=== PATIENT | male | born 1955 | race Caucasian/White ===

== ENCOUNTER 2016-12-21 01:49 | Emergency (ER) | payer MEDICAID ==
[2016-12-21 01:52] VITALS: BP 141/65; PULSE 70; RESP 16; TEMP 98.6; O2SAT 97
[2016-12-21] MEDS ORDERED: RESP: ALBUTEROL 2.5 MG/IPRATROPIUM 0.5 MG NEB (SCH) INH ONE (02:15)
[2016-12-21] MEDS ORDERED: predniSONE 20 MG TAB PO ONE (02:15)
--- NOTE | 2016-12-21 02:21 | PD ---
HPI Chief Complaint: Respiratory Symptoms Time Seen by Provider: 02:16 Travel History International Travel<30 days: No Contact w/Intl Traveler<30days: No Traveled to known affect area: No History of Present Illness HPI 61-year-old white male presents to emergency Department with complaints of cough and congestion for the past 4 days. He states that he has had a dental infection which she just saw the dentist this past week and is been started on penicillin. He plans on having his tooth extracted on Saturday. He denies any fever chills, earache, runny nose, sore throat, nausea, vomiting or diarrhea. Positive cough, congestion, shortness of breath and questionable wheezing. The patient states that he quit smoking 4 years ago. He's had a history of coronary artery disease with stent and hypertension. [facility] Past Medical History Narrative Medical Coronary artery disease, stent, Cardiac Catheterization: Yes Coronary Artery Disease: Yes Diminished Hearing: No Hypertension: Yes Myocardial Infarction: Yes Tetanus Vaccination: Unknown Past Surgical History Abdominal Surgery: Yes (unsure on sx's) Coronary Stent: Yes Social History Alcohol Use: No Tobacco Use: No Substance Use: No Allergies-Medications (Allergen,Severity, Reaction): Coded Allergies: Motrin (Verified Allergy, Unknown, 12/21/16) Reported Meds & Prescriptions Reported Meds & Active Scripts Active Deltasone (Prednisone) 20 Mg Tab 20 Mg PO BID Proventil Hfa 6.7 GM Inh (Albuterol Sulfate) 90 Mcg/Act Aer 2 Puff INH Q6H PRN Review of Systems Except as stated in HPI: all other systems reviewed are Neg Physical Exam Narrative GENERAL: Well-developed, well-nourished in no acute distress. Nontoxic appearing. HEAD: Normocephalic, atraumatic. EYES: Pupils equal round and reactive. Extraocular motions intact. No scleral icterus. No injection or drainage. ENT: TMs clear without erythema. The external auditory canals clear. Nose: clear . Posterior pharynx is pink and moist. No tonsillar edema or exudate. Uvula midline. Airway patent. NECK: Trachea midline.Supple, nontender, moves head freely. No central bony tenderness or spasm. CARDIOVASCULAR: Regular rate and rhythm without murmurs, gallops, or rubs. RESPIRATORY: Few x-ray wheezes. No Rales or rhonchi. GASTROINTESTINAL: Abdomen soft, non-tender, nondistended. No hepato-splenomegaly , or palpable masses. No guarding. EXTREMITIES: No clubbing, cyanosis, or edema. No joint tenderness, effusion, or edema noted. BACK: Nontender without deformity or crepitance. No flank tenderness. Data Data Last Documented VS Vital Signs Date Time Temp Pulse Resp B/P Pulse Ox O2 Delivery O2 Flow Rate FiO2 12/21/16 02:06 Room Air 12/21/16 01:52 98.6 70 16 141/65 97 Orders Prednisone (Deltasone) (12/21/16 02:15) Albuterol-Ipratropium Neb (Duoneb Neb) (12/21/16 02:15) MDM Medical Decision Making Medical Screen Exam Complete: Yes Emergency Medical Condition: Yes Medical Record Reviewed: Yes Differential Diagnosis MDM: High Differential diagnoses: Pneumonia, bronchitis, URI, asthma, RAD, legionnaire's disease, SARS, ARDS, influenza, bronchiolitis, RSV,PE,CHF Narrative Course Patient's given 80mg of prednisone and 1 DuoNeb. The patient is feeling improved. The patient medically stable for discharge. This is cough, reactive airway disease Diagnosis Primary Impression: Cough Additional Impression: Reactive airway disease Qualified Code: J45.20 - Mild intermittent reactive airway disease without complication Patient Instructions: General Instructions Additional Instructions: Rest. Increase fluids. Tylenol and Advil. prednisone, and albuterol. Followup with your Dr. in one week. Return to the ER for any problems. Med/Other Pt SpecificInfo: Prescription(s) given Scripts Prednisone (Deltasone)20 Mg Tab20 Mg PO BID #10 TAB Prov:Pablo Lainez MD 12/21/16 Albuterol 6.7 GM Inh (Proventil Hfa 6.7 GM Inh)90 Mcg/Act Aer2 Puff INH Q6H PRN (SHORTNESS OF BREATH) #1 INHALER Prov:Pablo Lainez MD 12/21/16 Disposition: 01 DISCHARGE HOME Condition: Stable Huber Browning Dec 21, 2016 02:21
[2016-12-21] MEDS ORDERED: ALBU6.7H INH (03:07)
[2016-12-21] MEDS ORDERED: PRED-503 PO (03:07)
== END 2016-12-21 03:19 | disposition home or self-care (01) ==
LOC: NEPD 01:49
DX: R05 Cough (principal); J45.909 Unspecified asthma, uncomplicated; I25.10 Atherosclerotic heart disease of native coronary artery without angina pectoris; I10 Essential (primary) hypertension; I25.2 Old myocardial infarction; Z88.6 Allergy status to analgesic agent
CPT/HCPCS: 94664; 99284; J7512

== ENCOUNTER 2017-02-23 08:48 | Emergency (ER) | payer MEDICAID ==
[~2017-02-23] VITALS: Ht 167.6 cm; Wt 72.0 kg
[~2017-02-23 08:48] MED LIST: ALBU6.7H INH; PRED-503 PO
[2017-02-23 08:53] VITALS: BP 155/73; PULSE 58; RESP 20; TEMP 98.3; O2SAT 97
--- NOTE | 2017-02-23 09:16 | PD ---
HPI Chief Complaint: Chest Pain Time Seen by Provider: 09:00 Travel History International Travel<30 days: No Contact w/Intl Traveler<30days: No Traveled to known affect area: No History of Present Illness HPI This is a 61-year-old male with a history of coronary artery disease, previous blood clots in his lower extremity, who presents today with complaints of cramps in his lower extremities bilaterally. Patient also reports right shoulder strain. Patient states that he has frequent cramps in his lower extremities. He states is normally there all the time however the intensity is a little worse today. He was concerning may have recurrent blood clots in his lower extremity. He supposedly takes blood thinners however he is unaware of which one he takes. Patient also states he was doing heavy lifting yesterday and feels as though he may have pulled a muscle in his right shoulder. There is no chest pain. There is no chest pressure. There is no left sided arm or shoulder discomfort. There is no reported shortness of breath. PFSH Past Medical History Cardiac Catheterization: Yes Coronary Artery Disease: Yes Diminished Hearing: No Hypertension: Yes Myocardial Infarction: Yes Past Surgical History Abdominal Surgery: Yes (unsure on sx's) Coronary Stent: Yes Social History Alcohol Use: No Tobacco Use: No Substance Use: No Allergies-Medications (Allergen,Severity, Reaction): Coded Allergies: ibuprofen (Unverified Allergy, Unknown, 02/23/17) Reported Meds & Prescriptions Reported Meds & Active Scripts Active Reported Quetiapine (Quetiapine Fumarate) 25 Mg Tab 25 Mg PO DAILY Brilinta (Ticagrelor) 90 Mg Tab 90 Mg PO BID Carvedilol 3.125 Mg Tab 3.125 Mg PO BID Pantoprazole (Pantoprazole Sodium) 40 Mg Tab 40 Mg PO DAILY Tamsulosin (Tamsulosin HCl) 0.4 Mg Cap 0.4 Mg PO HS Aspirin 81 Mg Chew 81 Mg CHEW DAILY Lisinopril 5 Mg Tab 5 Mg PO DAILY Atorvastatin (Atorvastatin Calcium) 20 Mg Tab 20 Mg PO HS Review of Systems Except as stated in HPI: all other systems reviewed are Neg General / Constitutional: No: Fever, Chills HENT: No: Headaches, Vertigo, Lightheadedness Cardiovascular: No: Chest Pain or Discomfort, Palpitations Respiratory: No: Cough, Shortness of Breath Gastrointestinal: Positive: Nausea, No: Vomiting, Abdominal Pain, Indigestion Genitourinary: No: Frequency, Dysuria Musculoskeletal: Positive: Cramping (cramping of bilateral thighs. No calf tenderness.), Pain (right shoulder pain. Patient states feels like "pulled muscle".), Other Skin: No Rash, No Lesions Neurologic: No: Weakness, Dizziness Endocrine: No: Polyuria, Polydipsia Physical Exam Narrative GENERAL: Well-developed well-nourished male in no acute respiratory distress. SKIN: Focused skin assessment warm/dry. HEAD: Atraumatic. Normocephalic. EYES: No scleral icterus. No injection or drainage. ENT: No nasal bleeding or discharge. Mucous membranes pink and moist. NECK: Trachea midline. No JVD. Supple. CARDIOVASCULAR: Regular rate and rhythm. No murmur appreciated. RESPIRATORY: No accessory muscle use. Clear to auscultation. Breath sounds equal bilaterally. GASTROINTESTINAL: Abdomen soft, non-tender, nondistended. Hepatic and splenic margins not palpable. MUSCULOSKELETAL: No obvious deformities. No clubbing. No cyanosis. No edema. No calf tenderness. No Homans sign. NEUROLOGICAL: Awake and alert. No obvious cranial nerve deficits. Motor grossly within normal limits. Normal speech. PSYCHIATRIC: Appropriate mood and affect; insight and judgment normal. Data Data Last Documented VS Vital Signs Date Time Temp Pulse Resp B/P (MAP) Pulse Ox O2 Delivery O2 Flow Rate FiO2 02/23/17 12:30 64 20 156/74 (101) 96 Room Air 02/23/17 08:53 98.3 Orders Orders Complete Blood Count With Diff (02/23/17 09:00) Comprehensive Metabolic Panel (02/23/17 09:00) Ckmb (Isoenzyme) Profile (02/23/17 09:00) Troponin I (02/23/17:00) Prothrombin Time / Inr (Pt) (02/23/17:) Act Partial Throm Time (Ptt) (02/23/17 09:00) Chest, Single Ap (02/23/17 09:00) Iv Access Insert/Monitor (02/23/17 09:00) Ecg Monitoring (02/23/17 09:00) Oximetry (02/23/17 09:00) Sodium Chlor 0.9% 1000 Ml Inj (Ns 1000 M (02/23/17 09:00) CKMB (02/23/17 09:15) CKMB% (02/23/17 09:15) Us Leg Venous Doppler Bilat (02/23/17 11:33) Sodium Chlorid 0.9% 500 Ml Inj (Ns 500 M (02/23/17 11:45) Labs Laboratory Tests Test 02/23/17 09:15 White Blood Count 12.7 TH/MM3 Red Blood Count 4.11 MIL/MM3 Hemoglobin 11.8 GM/DL Hematocrit 35.4 % Mean Corpuscular Volume 86.2 FL Mean Corpuscular Hemoglobin 28.8 PG Mean Corpuscular Hemoglobin Concent 33.4 % Red Cell Distribution Width 14.8 % Platelet Count 313 TH/MM3 Mean Platelet Volume 8.4 FL Neutrophils (%) (Auto) 64.1 % Lymphocytes (%) (Auto) 20.6 % Monocytes (%) (Auto) 13.3 % Eosinophils (%) (Auto) 1.6 % Basophils (%) (Auto) 0.4 % Neutrophils # (Auto) 8.2 TH/MM3 Lymphocytes # (Auto) 2.6 TH/MM3 Monocytes # (Auto) 1.7 TH/MM3 Eosinophils # (Auto) 0.2 TH/MM3 Basophils # (Auto) 0.0 TH/MM3 CBC Comment DIFF FINAL Differential Comment Prothrombin Time 10.9 SEC Prothromb Time International Ratio 1.0 RATIO Activated Partial Thromboplast Time 30.8 SEC Blood Urea Nitrogen 19 MG/DL Creatinine 1.14 MG/DL Random Glucose 117 MG/DL Total Protein 7.6 GM/DL Albumin 3.4 GM/DL Calcium Level 9.0 MG/DL Alkaline Phosphatase 97 U/L Aspartate Amino Transf (AST/SGOT) 15 U/L Alanine Aminotransferase (ALT/SGPT) 26 U/L Total Bilirubin 0.4 MG/DL Sodium Level 137 MEQ/L Potassium Level 4.0 MEQ/L Chloride Level 103 MEQ/L Carbon Dioxide Level 24.5 MEQ/L Anion Gap 10 MEQ/L Estimat Glomerular Filtration Rate 65 ML/MIN Total Creatine Kinase 155 U/L Creatine Kinase MB 1.9 NG/ML Troponin I 0.03 NG/ML [facility] Medical Decision Making Medical Screen Exam Complete: Yes Emergency Medical Condition: Yes Differential Diagnosis Dehydration versus electrolyte imbalance versus DVTs. Narrative Course 61-year-old male with a history of previous DVTs of lower extremities, previous leg cramps, who presents today with complaints of bilateral lower extremity cramps and right shoulder strain. The patient was doing heavy lifting yesterday when he started experiencing shoulder strain. The patient was noted to be dehydrated. He was infused 1-1/2 L of fluid. He states he feels much improved. Since we're unsure of what blood thinner medication he was on, and ultrasound of the bilateral lower extremities were ordered. There is no evidence of DVT. Right shoulder has full range of motion and he is tender over his deltoid muscle. He'll be discharged and told to drink plenty of fluids. He is also instructed to follow up with his primary care physician. Diagnosis Primary Impression: Mild dehydration Additional Impressions: Bilateral leg cramps Right shoulder strain Additional Instructions: Drink plenty of fluid. Ice 2 days on your shoulder, advance to moist heat as needed. Follow up with her primary care doctor within one week. Disposition: 01 DISCHARGE HOME Condition: Stable Richard Mattson MD Feb 23, 2017 09:16
[2017-02-23] MEDS: SODIUM CHLOR 0.9% 1000 ML INJ 1,000 ML IV SCH ×2 (09:22→13:10)
[2017-02-23 09:30] LABS: AUTOMATED NEUTROPHIL # 8.2 TH/MM3 (1.8-7.7); BASOPHIL % 0.4 % (0.0-2.0); EOSINOPHIL # 0.2 TH/MM3 (0-0.4); EOSINOPHIL % 1.6 % (0.0-4.0); HEMATOCRIT 35.4 % (39.0-51.0); HEMO FLAGS DIFF FINAL; LYMPH % 20.6 % (9.0-44.0); LYMPHOCYTE # 2.6 TH/MM3 (1.0-4.8); MEAN CELL VOLUME 86.2 FL (80.0-100.0); MEAN CORPUSCULAR HEMOGLOBIN 28.8 PG (27.0-34.0); MEAN CORPUSCULAR HGB CONC 33.4 % (32.0-36.0); MONO % 13.3 % (0.0-8.0); NEUT % 64.1 % (16.0-70.0); PLATELET COUNT 313 TH/MM3 (150-450); RED BLOOD COUNT 4.11 MIL/MM3 (4.50-5.90); RED CELL DISTRIBUTION WIDTH 14.8 % (11.6-17.2); WHITE BLOOD COUNT 12.7 TH/MM3 (4.0-11.0)
[2017-02-23 09:40] LABS: APTT (PATIENT) 30.8 SEC (24.3-30.1); PROTHROMBIN TIME - PATIENT 10.9 SEC (9.8-11.6)
[2017-02-23 09:47] LABS: ANION GAP 10 MEQ/L (5-15); AST (GOT) 15 U/L (15-37); BICARBONATE 24.5 MEQ/L (21.0-32.0); BLOOD UREA NITROGEN 19 MG/DL (7-18); CHLORIDE 103 MEQ/L (98-107); GLOMERULAR FILTRATION RATE 65 ML/MIN (>89); SODIUM (NA) 137 MEQ/L (136-145)
[2017-02-23 09:48] LABS: ALT (GPT) 26 U/L (12-78)
[2017-02-23 09:52] LABS: ALKALINE PHOSPHATASE 97 U/L (45-117); CREATINE KINASE 155 U/L (39-308); TOTAL BILIRUBIN ADULT 0.4 MG/DL (0.2-1.0)
--- NOTE | 2017-02-23 10:03 | RADRPT ---
EXAM DATE/TIME: 02/23/2017 09:56 [facility] COMPARISON: No previous studies available for comparison. INDICATIONS : Right sided chest pain that radiates into right shoulder. MEDICAL HISTORY : None. SURGICAL HISTORY : 2 cardiac stents. ENCOUNTER: Initial ACUITY: 2 days PAIN SCORE: 6/10 LOCATION: chest FINDINGS: A single view of the chest demonstrates the lungs to be symmetrically aerated without evidence of mas s, infiltrate or effusion. There is bilateral mild pulmonary venous congestion. The cardiomediastina l contours are unremarkable. Osseous structures are intact. CONCLUSION: Mild pulmonary venous congestion. No acute pulmonary infiltrates. Shaun Wallace MD on February 23, 2017 at 10:01 Board Certified Radiologist. This report was verified electronically.
[2017-02-23 10:04] LABS: CKMB 1.9 NG/ML (0.5-3.6)
[2017-02-23] MEDS ORDERED: SODIUM CHLORID 0.9% 500 ML INJ 500 ML IV ONE (11:45)
[2017-02-23 12:30] VITALS: BP 156/74; PULSE 64; RESP 20; O2SAT 96
[2017-02-23] MEDS ORDERED: TAMS0.4C4 PO (12:33)
[2017-02-23] MEDS ORDERED: QUET1TAB7 PO (12:33)
[2017-02-23] MEDS ORDERED: PANT40TA3 PO (12:33)
[2017-02-23] MEDS ORDERED: CARV3.12 PO (12:33)
[2017-02-23] MEDS ORDERED: ATOR20TA15 PO (12:33)
[2017-02-23] MEDS ORDERED: ASPI81CH CHEW (12:33)
[2017-02-23] MEDS ORDERED: BRIL90TA PO (12:33)
[2017-02-23] MEDS ORDERED: LISI-519 PO (12:33)
--- NOTE | 2017-02-23 14:03 | RADRPT ---
EXAM DATE/TIME: 02/23/2017 13:07 [facility] COMPARISON: No previous studies available for comparison. INDICATIONS : Bilateral leg pain. MEDICAL HISTORY : Myocardial infarction. Hypertension. Coronary artery disease. SURGICAL HISTORY : Coronary artery stent. Cardiac catheterization. Left hand surgery. ENCOUNTER: Initial ACUITY: 2 day PAIN SCORE: 3/10 LOCATION: Bilateral legs. TECHNIQUE: Venous ultrasound of the left and right leg was performed from the inguinal ligament to the proximal calf. Real-time, color Doppler and spectral tracing, compression and augmentation techniques were us ed. FINDINGS: RIGHT LEG: There is normal compressibility of the deep venous system from the inguinal region to the proximal ca lf. No echogenic clot is seen in the lumen of the common femoral, femoral, popliteal, and posterior tibial veins. There is a normal response of the venous system to proximal and distal augmentation an d respiration. LEFT LEG: There is normal compressibility of the deep venous system from the inguinal region to the proximal ca lf. No echogenic clot is seen in the lumen of the common femoral, femoral, popliteal, and posterior tibial veins. There is a normal response of the venous system to proximal and distal augmentation an d respiration. CONCLUSION: 1. No evidence of deep venous thrombosis.8 Cj Martinez MD on February 23, 2017 at 14:01 Board Certified Radiologist. This report was verified electronically.
[2017-02-23 14:46] VITALS: BP 142/72; PULSE 62; RESP 20; O2SAT 96
--- NOTE | 2017-02-23 16:24 | EKG ---
Date Performed: 02/23/2017 Time Performed: 08:58:04 PTAGE: 61 years EKG: SINUS BRADYCARDIA INDETERMINATE AXIS RIGHT BUNDLE BRANCH BLOCK ABNORMAL ECG NO PREVIOUS TRACING DOCTOR: Chang Nielsen Interpretating Date/Time 02/23/2017 16:24:10
== END 2017-02-23 15:19 | disposition home or self-care (01) ==
LOC: NEPC 08:48
DX: R25.2 Cramp and spasm (principal); S46.911A Strain of unspecified muscle, fascia and tendon at shoulder and upper arm level, right arm, initial encounter; I25.10 Atherosclerotic heart disease of native coronary artery without angina pectoris; I10 Essential (primary) hypertension; I25.2 Old myocardial infarction; Z79.82 Long term (current) use of aspirin; Z79.899 Other long term (current) drug therapy; E86.0 Dehydration; X58.XXXA Exposure to other specified factors, initial encounter; Z86.718 Personal history of other venous thrombosis and embolism
CPT/HCPCS: 71010; 80053; 82550; 82552; 84484; 85025; 85610; 85730; 93005; 93970; 96360; 96361; 99285; J7030; J7040

== ENCOUNTER 2017-05-24 10:25 | Emergency (ER) | payer MEDICAID ==
[~2017-05-24] VITALS: Ht 167.6 cm; Wt 85.0 kg
[~2017-05-24 10:25] MED LIST changes: -ALBU6.7H INH; +ASPI-516 CHEW; +ATOR20TA15 PO; +BRIL90TA PO; +CARV3.12 PO; +LISI-519 PO; +PANT40TA3 PO; -PRED-503 PO; +QUET1TAB7 PO; +TAMS0.4C4 PO
[2017-05-24 10:28] VITALS: BP 150/74; PULSE 77; RESP 16; TEMP 98.6; O2SAT 98
--- NOTE | 2017-05-24 12:58 | PD ---
HPI Chief Complaint: Cold / Flu Symptoms Time Seen by Provider: 12:49 Travel History International Travel<30 days: No Contact w/Intl Traveler<30days: No Traveled to known affect area: No History of Present Illness HPI This is a 61-year-old male who presents for evaluation. For 2 days he has had cough, congestion, sneezing. The cough is productive with green sputum. He has had some mild pressure in both ears, left greater than right. He denies fevers or chills. No sick contacts. Denies recent travel, rash, chest pain or shortness of breath, abdominal pain. He has not tried using any over-the- counter medications for symptom relief. He has no other complaints at this time. [facility] Past Medical History Cardiac Catheterization: Yes Coronary Artery Disease: Yes Diminished Hearing: No Hypertension: Yes Myocardial Infarction: Yes Past Surgical History Abdominal Surgery: Yes (unsure on sx's) Coronary Stent: Yes Social History Alcohol Use: No Tobacco Use: No Substance Use: No Allergies-Medications (Allergen,Severity, Reaction): Coded Allergies: ibuprofen (Unverified Allergy, Unknown, 05/24/17) Reported Meds & Prescriptions Reported Meds & Active Scripts Active Flonase Nasal [place] (Fluticasone Nasal [place]) 50 Mcg/Act [place] 100 Mcg EACH NARE BID 10 Days Tessalon Perles (Benzonatate) 100 Mg Cap 200 Mg PO TID PRN Reported Quetiapine (Quetiapine Fumarate) 25 Mg Tab 25 Mg PO DAILY Brilinta (Ticagrelor) 90 Mg Tab 90 Mg PO BID Carvedilol 3.125 Mg Tab 3.125 Mg PO BID Pantoprazole (Pantoprazole Sodium) 40 Mg Tab 40 Mg PO DAILY Tamsulosin (Tamsulosin HCl) 0.4 Mg Cap 0.4 Mg PO HS Aspirin 81 Mg Chew 81 Mg CHEW DAILY Lisinopril 5 Mg Tab 5 Mg PO DAILY Atorvastatin (Atorvastatin Calcium) 20 Mg Tab 20 Mg PO HS Review of Systems Except as stated in HPI: all other systems reviewed are Neg Physical Exam Narrative GENERAL: Well-developed well-nourished male in no acute distress SKIN: Warm and dry. HEAD: Atraumatic. Normocephalic. EYES: Pupils equal and round. No scleral icterus. No injection or drainage. ENT: No nasal bleeding or discharge. Mucous membranes pink and moist. Tympanic membranes appear normal bilaterally without erythema or fluid level. No oropharyngeal erythema accident. No tenderness to palpation over the maxillary or frontal sinuses. NECK: Trachea midline. No JVD. CARDIOVASCULAR: Regular rate and rhythm. No murmur appreciated. RESPIRATORY: No accessory muscle use. Clear to auscultation. Breath sounds equal bilaterally. GASTROINTESTINAL: Abdomen soft, non-tender, nondistended. Hepatic and splenic margins not palpable. MUSCULOSKELETAL: No obvious deformities. No clubbing. No cyanosis. No edema. NEUROLOGICAL: Awake and alert. No obvious cranial nerve deficits. Motor grossly within normal limits. Normal speech. PSYCHIATRIC: Appropriate mood and affect; insight and judgment normal. Data Data Last Documented VS Vital Signs Date Time Temp Pulse Resp B/P (MAP) Pulse Ox O2 Delivery O2 Flow Rate FiO2 05/24/17 10:28 98.6 77 16 150/74 (99) 98 Orders Orders Ed Discharge Order (05/24/17 13:04) [facility] Medical Decision Making Medical Screen Exam Complete: Yes Emergency Medical Condition: Yes Medical Record Reviewed: Yes Differential Diagnosis Bronchitis, rhinitis, influenza, pneumonia, sinusitis Narrative Course 61-year-old male with 2 days of cough, congestion, sneezing and bilateral ear pressure. Physical examination is reassuring. He is afebrile, not tachycardic , does not appear septic or dehydrated. His lungs are clear to auscultation. His ENT examination is unremarkable. I suspect he has a viral upper respiratory infection. The patient will be discharged with symptomatic treatment. Diagnosis Primary Impression: Upper respiratory infection Additional Instructions: Medication as prescribed. Stay well hydrated well-nourished. Return for any acutely or worsening symptoms. Med/Other Pt SpecificInfo: Prescription(s) given Scripts Fluticasone Nasal [place] (Flonase Nasal [place]) 50 Mcg/Act [place] 100 MCG EACH NARE BID for Allergies for 10 Days, #1 BOTTLE 0 Refills Prov: Gaurang Amaya MD 05/24/17 Benzonatate (Tessalon Perles) 100 Mg Cap 200 MG PO TID Y for COUGH, #30 CAP 0 Refills Prov: Gaurang Amaya MD 05/24/17 Disposition: 01 DISCHARGE HOME Condition: Stable Sander Valdez May 24, 2017 12:58
[2017-05-24] MEDS ORDERED: FLUT1SPR5 EACH NARE (13:03)
[2017-05-24] MEDS ORDERED: BENZ100 PO (13:03)
== END 2017-05-24 13:39 | disposition home or self-care (01) ==
LOC: NEPD 10:25
DX: J06.9 Acute upper respiratory infection, unspecified (principal); I10 Essential (primary) hypertension; I25.10 Atherosclerotic heart disease of native coronary artery without angina pectoris; I25.2 Old myocardial infarction; Z95.5 Presence of coronary angioplasty implant and graft
CPT/HCPCS: 99283

== ENCOUNTER 2017-05-25 00:14 | Observation (INO) | payer MEDICAID ==
[~2017-05-25 00:14] MED LIST changes: +BENZ100 PO; +FLUT1SPR5 EACH NARE
[2017-05-25 00:25] VITALS: BP 139/74; PULSE 71; RESP 16; TEMP 98.5; O2SAT 95
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
[2017-05-25] MEDS ORDERED: SODIUM CHLORIDE 0.9% FLUSH 10 ML FLUSH IVF PRN (01:30)
--- NOTE | 2017-05-25 01:53 | RADRPT ---
EXAM DATE/TIME: 05/25/2017 01:27 [facility] COMPARISON: CHEST SINGLE AP, February 23, 2017, 9:56. INDICATIONS : Chest pain and leg cramping. MEDICAL HISTORY : None. SURGICAL HISTORY : None. ENCOUNTER: Initial ACUITY: 1 day PAIN SCORE: 6/10 LOCATION: Bilateral chest FINDINGS: A single view of the chest demonstrates the lungs to be symmetrically aerated without evidence of mas s, infiltrate or effusion. The cardiomediastinal contours are unremarkable. Osseous structures are intact. CONCLUSION: No acute disease. No significant change has occurred. Shaun Wallace MD on May 25, 2017 at 1:50 Board Certified Radiologist. This report was verified electronically.
[2017-05-25 01:59] LABS: AUTOMATED NEUTROPHIL # 5.2 TH/MM3 (1.8-7.7); BASOPHIL % 0.5 % (0.0-2.0); EOSINOPHIL # 0.3 TH/MM3 (0-0.4); EOSINOPHIL % 3.1 % (0.0-4.0); HEMATOCRIT 36.6 % (39.0-51.0); LYMPH % 22.9 % (9.0-44.0); LYMPHOCYTE # 2.1 TH/MM3 (1.0-4.8); MEAN CELL VOLUME 86.4 FL (80.0-100.0); MEAN CORPUSCULAR HEMOGLOBIN 28.3 PG (27.0-34.0); MEAN CORPUSCULAR HGB CONC 32.8 % (32.0-36.0); MEAN PLATELET VOLUME 8.4 FL (7.0-11.0); MONO % 16.3 % (0.0-8.0); MONOCYTE # 1.5 TH/MM3 (0-0.9); NEUT % 57.2 % (16.0-70.0); PLATELET COUNT 326 TH/MM3 (150-450); RED BLOOD COUNT 4.24 MIL/MM3 (4.50-5.90); RED CELL DISTRIBUTION WIDTH 15.1 % (11.6-17.2); WHITE BLOOD COUNT 9.1 TH/MM3 (4.0-11.0)
[2017-05-25 02:12] LABS: PROTHROMBIN TIME - PATIENT 10.2 SEC (9.8-11.6)
[2017-05-25 02:36] LABS: BICARBONATE 25.2 MEQ/L (21.0-32.0); BLOOD UREA NITROGEN 14 MG/DL (7-18); CALCIUM 8.4 MG/DL (8.5-10.1); CHLORIDE 106 MEQ/L (98-107); CREATININE 1.35 MG/DL (0.60-1.30); GLOMERULAR FILTRATION RATE 53 ML/MIN (>89); GLUCOSE,RANDOM 109 MG/DL (74-106); SODIUM (NA) 139 MEQ/L (136-145)
[2017-05-25 02:39] LABS: TROPONIN I 0.04 NG/ML (0.02-0.05)
[2017-05-25] MEDS ORDERED: SODIUM CHLOR 0.9% 1000 ML INJ 1,000 ML IV ONE (03:00)
[2017-05-25] MEDS ORDERED: ONDANSETRON HCL 4 MG/2 ML VIAL IV PUSH PRN (03:15)
[2017-05-25] MEDS ORDERED: SODIUM CHLORIDE 0.9% FLUSH 10 ML FLUSH IV FLUSH PRN (03:15)
[2017-05-25] MEDS ORDERED: ACETAMINOPHEN 500 MG CPLT PO PRN (03:15)
[2017-05-25] MEDS ORDERED: NITROGLYCERIN 0.4 MG SL 25 TABS/BTL SL PRN (03:15)
[2017-05-25 03:47] VITALS: O2SAT 95
[2017-05-25 06:32] LABS: TROPONIN I 0.05 NG/ML (0.02-0.05)
[2017-05-25 07:48] VITALS: O2SAT 95
[2017-05-25] MEDS ORDERED: SODIUM CHLORIDE 0.9% FLUSH 10 ML FLUSH IV FLUSH SCH (09:00)
[2017-05-25 09:07] LABS: TROPONIN I 0.05 NG/ML (0.02-0.05)
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
[2017-05-25] MEDS ORDERED: REGADENOSON INJ 0.4 MG/5 ML SYR ONE (11:11)
--- NOTE | 2017-05-25 12:51 | RADRPT ---
EXAM DATE/TIME: 05/25/2017 11:00 [facility] COMPARISON: No previous studies available for comparison. INDICATIONS : Left sided chest pain. Angina. DOSE: 25.9 mCi Tc99m Myoview at stress. 8.1 mCi Tc99m Myoview at rest. 0.4 mg Lexiscan STRESS SYMPTOMS: Short of breath. EJECTION FRACTION: 42% MEDICAL HISTORY : Hypertension. Cardiovascular disease SURGICAL HISTORY : Coronary artery stent. ENCOUNTER: Initial ACUITY: 1 day PAIN SCALE: 3/10 LOCATION: Left chest TECHNIQUE: The patient underwent pharmacologic stress with infusion of prescribed dose. Continuous ECG tracing was monitored during stress. Gated SPECT imaging was performed after stress and conventional SPECT i maging was performed at rest. The examination was performed on a SPECT/CT scanner, both attenuation and non-corrected datasets were reviewed. FINDINGS: DISTRIBUTION: The maximum perfused segment at stress is in the anterior wall. PERFUSION STUDY: The pattern of perfusion at stress is within normal limits. GATED STUDY: There is intact wall motion and thickening without hypokinetic or dyskinetic segments. CONCLUSION: Ejection fraction 42%. No focal wall motion abnormality or focal reversible perfusion defect. RISK CATEGORY: 2- Intermediate Risk. Fred Casarez MD on May 25, 2017 at 12:46 Board Certified Radiologist. This report was verified electronically.
[2017-05-25] MEDS ORDERED: CARVEDILOL 3.125 MG TAB PO SCH (13:30)
--- NOTE | 2017-05-25 13:48 | HHI.DCPOC ---
Discharge Care Plan Diagnosis: (1) Atypical chest pain (2) Hx of coronary artery disease Goals to Promote Your Health * To prevent worsening of your condition and complications * To maintain your health at the optimal level Directions to Meet Your Goals Take your medications as prescribed Follow your dietary instruction Follow activity as directed Keep your appointments as scheduled Take your immunizations and boosters as scheduled If your symptoms worsen call your PCP, if no PCP go to Urgent Care Center or Emergency Room Smoking is Dangerous to Your Health. Avoid second hand smoke Call the 24-hour hour crisis hotline for domestic abuse at Sanjana Parmar May 25, 2017 13:48
[2017-05-25] MEDS ORDERED: TICAGRELOR 90 MG TAB PO SCH (14:00)
[2017-05-25] MEDS ORDERED: PANTOPRAZOLE SOD 40 MG DELAYED RELEASE TAB PO SCH (14:00)
[2017-05-25] MEDS ORDERED: QUEtiapine FUMARATE 25 MG TAB PO SCH (14:00)
[2017-05-25] MEDS ORDERED: LISINOPRIL 5 MG TAB PO SCH (14:00)
--- NOTE | 2017-05-25 14:04 | EKG ---
Date Performed: 05/25/2017 Time Performed: 05:58:11 PTAGE: 61 years EKG: SINUS BRADYCARDIA INDETERMINATE AXIS RIGHT BUNDLE BRANCH BLOCK ABNORMAL ECG NO SIG CHANGE PREVIOUS TRACING : 05/25/2017 01.26 DOCTOR: Blake Love Interpretating Date/Time 05/25/2017 14:03:53
--- NOTE | 2017-05-25 14:06 | EKG ---
Date Performed: 05/25/2017 Time Performed: 01:26:17 PTAGE: 61 years EKG: SINUS BRADYCARDIA RIGHT BUNDLE BRANCH BLOCK LEFT ANTERIOR FASCICULAR BLOCK ABNORMAL ECG NO SIG CHANGE PREVIOUS TRACING : 02/23/2017 08.58 DOCTOR: Blake Love Interpretating Date/Time 05/25/2017 14:05:50
--- NOTE | 2017-05-25 14:11 | TR ---
Date Performed: 05/25/2017 Time Performed: 11:30:15 DOCTOR: Blake Love DRUG LIST: CLINICAL HISTORY: REASON FOR TEST: REASON FOR ENDING: OBSERVATION: CONCLUSION: Lexiscan stress test was performed under standard four minute protocol. Radionuclide was injected one minute prior to ending the test. No electrocardiographic abormalities were present to suggest ischemia. Nuclear imaging and interpretation are pending. COMMENTS:
== END 2017-05-25 17:21 | disposition home or self-care (01) ==
LOC: NEPD 00:14 → NEDA 03:16 → NEPGCP 14:08
PROVIDERS: ADMIT Internal Medicine Cardiovascular Disease; ATTEND Internal Medicine Cardiovascular Disease
DX: M62.838 Other muscle spasm (principal); M54.9 Dorsalgia, unspecified; R07.9 Chest pain, unspecified; I25.10 Atherosclerotic heart disease of native coronary artery without angina pectoris; I10 Essential (primary) hypertension; I25.2 Old myocardial infarction; Z79.899 Other long term (current) drug therapy; R47.81 Slurred speech; Z87.891 Personal history of nicotine dependence; Z95.5 Presence of coronary angioplasty implant and graft; I45.2 Bifascicular block; R94.31 Abnormal electrocardiogram [ECG] [EKG]
CPT/HCPCS: 71045; 78452; 80048; 82550; 82552; 83735; 84484; 85025; 85610; 85730; 93005; 93017; 99285; A9502; G0378; J2785; J7030